=== PATIENT | male | born 1995 | race Caucasian/White ===

== ENCOUNTER 2016-09-19 15:18 | Emergency (ER) | payer OTHER ==
[2016-09-19 16:00] VITALS: BP 129/61
--- NOTE | 2016-09-19 16:14 | UC ---
Respiratory Complaint HPI - History of Current Complaint Chief Complaint: UCGeneralIllness Stated Complaint: SORE THROAT,VOMITING Time Seen by Provider: 09/19/16 16:06 Hx Obtained From: Patient Onset/Duration: Sudden Onset - sore throat, cough, nasal congestion and vomiting., Lasting Days - 5 days, Still Present Timing: Constant Character: Cough: Productive Aggravating Factors: Deep Breaths Alleviating Factors: Nothing Associated Signs And Symptoms: Positive: Wheezing, URI, Nasal Congestion, Hoarseness - Allergies/Home Medications Allergies/Adverse Reactions: Allergies Allergy/AdvReac Type Severity Reaction Status Date / Time Amoxicillin Allergy Hives Verified 09/19/16 15:55 Fish Allergy Allergy Difficulty Verified 09/19/16 15:55 Breathing all nuts Allergy Difficulty Uncoded 09/19/16 15:55 Breathing environmental Allergy Eyes Uncoded 09/19/16 15:55 Itchy/Swollen/Red/Watery Home Medications: Home Medications [id number] [Nyquil Severe Cold/Flu 5-6.25-10-325 mg/15Ml] 1 liq PO BEDTIME PRN 09/19/16 [History Confirmed 09/19/16] PMH/Surg Hx/FS Hx/Imm Hx Respiratory History Of: Reports: Asthma - Surgical History Surgical History: Yes Surgery Procedure, Year, and Place: ear tubes - Family History Known Family History: Positive: Hypertension Negative: Cardiac Disease, Diabetes - Social History Occupation: Student Lives: Alone Alcohol Use: Weekly Substance Use Type: None Smoking Status (MU): Never Smoked Tobacco Review of Systems Constitutional: Fever ENT: Sore Throat, Ear Ache Respiratory: Cough All Other Systems Reviewed And Are Negative: Yes Physical Exam Triage Information Reviewed: Yes Appearance: No Pain Distress, Well-Nourished, Ill-Appearing Vital Signs: Initial Vital Signs Temp 98.5 F 09/19/16 15:56 Pulse 67 09/19/16 15:56 Resp 16 09/19/16 15:56 BP 129/61 09/19/16 15:56 Pulse Ox 100 09/19/16 15:56 Vital Signs Reviewed: Yes Eyes: Positive: Conjunctiva Inflamed - mild OU ENT: Positive: Pharyngeal erythema, Nasal congestion, TM bulging - but translucent Respiratory: Positive: Lungs clear, Wheezing - expiratory with coughing Cardiovascular Exam: Normal Musculoskeletal Exam: Normal Neurological Exam: Normal Psychological Exam: Normal Skin Exam: Normal UC Diagnostic Evaluation - Laboratory O2 Sat by Pulse Oximetry: 100 Respiratory Course/Dx - Differential Dx/Diagnosis Differential Diagnosis/HQI/PQRI: Asthma, Lower Resp Infection, Sinusitis Provider Diagnoses: Acute URI. Acute bronchospasm Discharge - Discharge Plan Condition: Stable Disposition: HOME Prescriptions: predniSONE TAB* [Deltasone TAB*] 20 mg PO DAILY #18 tab Patient Education Materials: Upper Respiratory Infection (ED), Bronchospasm (ED ), Prednisone (By mouth) Additional Instructions: Use your inhaler with coughing fits. NASAL SPRAYS AND DROPS: Afrin in the PUMP/ MIST bottle. Tilt your head down and look at the floor while doing a strong sniff with the spray. Decongestant nasal sprays and drops often give dramatic relief from congestion. They are often recommended for patients with sinus infection to assist with sinus drainage. Persons with high blood pressure should consult the doctor before using these nasal sprays. Afrin and Sebastian-Synephrine are common [id number] preparations. They should not be used for more than five days, as "rebound" congestion can occur - - the congestion flares as the drug wears off. A way of dealing with this rebound congestion problem is to medicate only one nostril each time, allowing the other nostril to recover from the medicine' s effects. When you no longer need the drug during the day, spray only one nostril each night. This helps you sleep well without severe rebound congestion. Call the doctor if you develop severe headache, palpitations, or chest pain.
[2016-09-19] MEDS ORDERED: predniSONE TAB* 20 MG PO ONE (16:18)
== END 2016-09-19 16:39 | disposition home or self-care (01) ==
LOC: UCCORT 15:18
DX: J06.9 Acute upper respiratory infection, unspecified (principal); J98.01 Acute bronchospasm; Z88.1 Allergy status to other antibiotic agents
CPT/HCPCS: 99202; G0463; J7512